=== PATIENT | female | born 1965 | race African-American/Black ===

== ENCOUNTER 2019-05-22 15:17 | Inpatient (IN) | payer OTHER ==
[2019-05-22 17:17] VITALS: BMI 26.7
--- NOTE | 2019-05-22 18:09 | HP ---
"CIWA Score Nausea/Vomitin-No Nausea/No Vomiting Muscle Tremors: 2 Anxiety: 3 Agitation: 2 Paroxysmal Sweats: No Perspiration Orientation: 0-Oriented Tacttile Disturbances: 0-None Auditory Disturbances: 0-None Visual Disturbances: 2-Mild Sensitivity Headache: 0-None Present CIWA-Ar Total Score: 9 - Admission Criteria OASAS Guidelines: Admission for Medically Managed Detox: Requires at least one of the followin. CIWA greater than 12 2. Seizures within the past 24 hours 3. Delirium tremens within the past 24 hours 4. Hallucinations within the past 24 hours 5. Acute intervention needed for co occurring medical disorder 6. Acute intervention needed for co occurring psychiatric disorder 7. Severe withdrawal that cannot be handled at a lower level of care (continued vomiting, continued diarrhea, abnormal vital signs) requiring intravenous medication and/or fluids 8. Admission ROS [facility] Allergies/Adverse Reactions: Allergies Allergy/AdvReac Type Severity Reaction Status Date / Time shellfish derived Allergy Severe Hives Verified 05/22/19 17:01 No Known Drug Allergies Allergy Verified 05/22/19 18:38 History of Present Illness: pt here requesting detox from etoh use , reports 1/2 pint /day and > 6 -pk beer/day , starts drinking in the mornings , has been drinking alcohol heavily since 2015 after the of her mother , latest use this morning , current symptoms as above , reports hand tremors if not drinking , denies blackouts or seizures. First age of use 14 , heavily since 2014 . cocaine : 50-100 $/ day , denies ivdu , first age of use 27 , longest sobriety while in rehab tobacco : 1/4 ppd PMHX : asthma ( hospitalized , intubated in childhood , h nebulizer tx in adulthood ) on inhaler Albuterol , bipolar d/o ( on Seroquel, Depakote ) chronic pain 2/2 LLE femur frx , pelvic frx w/ ORIF 2016 uses cane for ambulation . PSHX : as above , r elbow frx 2003 2/2 slip and fall w/ subsequent ulnar neuropathy . SHX : lives alone . per phar Meds per pharmacy : Meloxicam 7.5 mg , Depakote 500 bid , Seroquel 100 mg Search Terms: viji javier, 1965 Search Date: 05/22/2019 06:42:25 PM This report was requested by: Ashley Rabago | Reference #: [id number] There are no results for the search terms that you entered. Exam Limitations: No Limitations - Ebola screening Have you traveled outside of the country in the last 21 days: No Have you had contact with anyone from an Ebola affected area: No - Review of Systems Constitutional: Loss of Appetite EENT: reports: Other (glasses dentures upper and lower) Respiratory: reports: See HPI Cardiac: reports: No Symptoms Reported GI: reports: Poor Appetite : reports: No Symptoms Reported Musculoskeletal: reports: See HPI, Joint Pain (left leg , pelvis - chronic pain) Integumentary: reports: No Symptoms Reported Neuro: reports: See HPI, Tremors, Unsteady Gait (using cane for stability and balance) Endocrine: reports: No Symptoms Reported Psychiatric: reports: Orientated x3, Anxious Patient History - Patient Medical History Hx Anemia: Yes Hx Asthma: Yes Hx Chronic Obstructive Pulmonary Disease (COPD): No Hx Cancer: No Hx Cardiac Disorders: No Hx Congestive Heart Failure: No Hx Hypertension: No Hx Hypercholesterolemia: No Hx Pacemaker: No HX Cerebrovascular Accident: No Hx Seizures: No Hx Dementia: No Hx Diabetes: No Hx Gastrointestinal Disorders: No Hx Liver Disease: No Hx Genitourinary Disorders: No Hx Sexually Transmitted Disorders: Yes (gonorrhea in 2012) Hx Renal Disease (ESRD): No Hx Thyroid Disease: No Hx Human Immunodeficiency Virus (HIV): No (negative) Hx Hepatitis C: No Hx Depression: Yes Hx Suicide Attempt: No (denies) Hx Bipolar Disorder: Yes (seroquel, depakote, cogentin) Hx Schizophrenia: No - Patient Surgical History Past Surgical History: Yes Hx Neurologic Surgery: No Hx Cataract Extraction: No Hx Cardiac Surgery: No Hx Lung Surgery: No Hx Breast Surgery: No Hx Breast Biopsy: No Hx Abdominal Surgery: No Hx Appendectomy: No Hx Cholecystectomy: No Hx Genitourinary Surgery: No Hx Section: No Hx Orthopedic Surgery: Yes (Fx r elbow after falling, surgical repair) Anesthesia Reaction: No - PPD History Date: 04/16/15 - Reproductive History Last Menstrual Period: 08/26/13 (comes and goes last 2 months ago) - Smoking Cessation Smoking history: Current every day smoker Have you smoked in the past 12 months: Yes Aproximately how many cigarettes per day: 4 Hx Chewing Tobacco Use: No Initiated information on smoking cessation: No - Substances abused Alcohol Substance route: Oral Frequency: Daily Amount used: 1/2 pint vodka, 6 pack beer Age of first use: 14 Date of last use: 05/22/19 Cocaine Substance route: Smoking Frequency: Daily Amount used: $50 Age of first use: 27 Date of last use: 05/21/19 Crack Substance route: Smoking Frequency: Daily Amount used: $100 Age of first use: 27 Date of last use: 05/22/19 Family Disease History - Family Disease History Family Disease History: Diabetes: Mother (d. 2014 ), Heart Disease: Mother, CA: Father (d. throat CA 1997), Respiratory: Son (asthma), Other: Father, Mother Admission Physical Exam S - Vital Signs Vital Signs: Vital Signs - 24 hr 05/22/19 17:07 Temperature 98 F Pulse Rate 69 Respiratory 18 Rate Blood Pressure 120/76 - Physical General Appearance: Yes: Mild Distress, Anxious HEENTM: Yes: EOMI, Hearing grossly Normal, Normocephalic, Normal Voice, Other ( upper and lower dentures) Respiratory: Yes: Lungs Clear, Normal Breath Sounds, No Respiratory Distress, No Accessory Muscle Use Neck: Yes: No masses,lesions,Nodules, Trachea in good position Cardiology: Yes: Regular Rhythm, Regular Rate, S1, S2 Abdominal: Yes: Non Tender, Soft Back: Yes: Normal Inspection Musculoskeletal: Yes: Other (unsteady gait , uses cane for stability and balance .) Extremities: Yes: Other (LLE surgical scars lateral thigh and below knee , mild edema LLE , per pt chronic R UE IVth and Vth fingers hyperextension PIP deformity old surgical scar right elbow) Neurological: Yes: Alert, Motor Strength 5/5, Depressed Affect Integumentary: Yes: Warm - Diagnostic (1) Alcohol dependence Current Visit: Yes Status: Chronic Qualifiers: Substance use status: in withdrawal (2) Cocaine dependence Current Visit: Yes Status: Chronic Qualifiers: Substance use status: uncomplicated Qualified Code(s): F14.20 - Cocaine dependence, uncomplicated (3) Nicotine dependence Current Visit: Yes Status: Chronic Qualifiers: Nicotine product type: cigarettes Breathalyzer - Breathalyzer Breathalyzer: 0 Urine Drug Screen - Test Device Lot number: [id number] Expiration date: 02/23/21 - Control Is test valid?: Yes - Results Drug screen NEGATIVE: No Urine drug screen results: [facility]-Cocaine Inpatient Rehab Admission - Rehab Decision to Admit Inpatient rehab admission?: No"
[2019-05-22] MEDS ORDERED: P-EPHED 60MG/TRIPROLIDI 2.5MG TABLET PO PRN (18:32)
[2019-05-22] MEDS ORDERED: MAGNESIUM CITRATE 300 ML BOTTLE PO PRN (18:32)
[2019-05-22] MEDS ORDERED: ACETAMINOPHEN 325 MG TABLET (FP) PO PRN ×2 (18:32)
[2019-05-22] MEDS ORDERED: MENTHOL/PHENOL 1 EACH UD MM PRN (18:32)
[2019-05-22] MEDS ORDERED: IBUPROFEN 400 MG TABLET (FP) PO PRN (18:32)
[2019-05-22] MEDS ORDERED: MELATONIN 5 MG TABLETS PO PRN (18:32)
[2019-05-22] MEDS ORDERED: MAGNESIUM HYDROX 2400MG/30ML ORAL SUSPENSION 30 ML CUP PO PRN (18:32)
[2019-05-22] MEDS ORDERED: guaiFENesin 200 MG/10 ML 10 ML UNIT-DOSE CUPS PO PRN (18:32)
[2019-05-22] MEDS ORDERED: NICOTINE POLACRILEX 2 MG GUM BUC PRN (18:32)
[2019-05-22] MEDS ORDERED: BISMUTH SUBSALICYLATE 524 MG/30 ML UD PO PRN (18:32)
[2019-05-22] MEDS ORDERED: MAG HYDROX/AL HYDROX/SIMETH 30 ML UNIT-DOSE CUP PO PRN (18:32)
[2019-05-22] MEDS ORDERED: hydrOXYzine PAMOATE 25 MG CAPSULE (FP) PO PRN (18:32)
[2019-05-22] MEDS ORDERED: METHOCARBAMOL 500 MG TABLET PO PRN (18:32)
[2019-05-22] MEDS ORDERED: diazePAM 5 MG TABLET PO PRN (18:36)
[2019-05-22] MEDS ORDERED: QUEtiapine FUMARATE 100 MG TABLET (FP) PO ONE (21:00)
[2019-05-22] MEDS: diazePAM 5 MG TABLET PO SCH (22:35)
[2019-05-22] MEDS: THIAMINE HCL 100 MG TABLET (FP) PO SCH (22:37)
[2019-05-23] MEDS: diazePAM 5 MG TABLET PO SCH ×3 (06:40→22:09)
[2019-05-23 10:13] LABS: HEMATOCRIT 38.5 % (32.4-45.2); HEMOGLOBIN 12.5 GM/dL (10.7-15.3); MCH 30.5 pg (25.7-33.7); MCHC 32.6 g/dl (32.0-36.0); MEAN CELL VOLUME 93.7 fl (80-96); MEAN PLT VOLUME 8.9 fl (7.5-11.1); PLATELET COUNT 261 K/MM3 (134-434); RBC 4.11 M/mm3 (3.60-5.2); RDW 13.8 % (11.6-15.6); WHITE BLOOD COUNT 7.3 K/mm3 (4.0-10.0)
[2019-05-23 10:25] LABS: ALBUMIN 2.9 g/dl (3.4-5.0); BILIRUBIN,TOTAL 0.3 mg/dL (0.2-1); BLOOD UREA NITROGEN 14.9 mg/dL (7-18); CALCIUM 9.1 mg/dL (8.5-10.1); CREATININE 0.7 mg/dL (0.55-1.3); TOT PROT 5.5 g/dl (6.4-8.2)
[2019-05-23] MEDS: PRENATAL VITAMINS W/ FOLIC ACID TABLET (FP) PO SCH (10:35)
--- NOTE | 2019-05-23 11:05 | PN ---
S CIWA - CIWA Score Nausea/Vomitin-No Nausea/No Vomiting Muscle Tremors: 2 Anxiety: 1-Mildly Anxious Agitation: 2 Paroxysmal Sweats: 1-Minimal Palms Moist Orientation: 0-Oriented Tacttile Disturbances: 0-None Auditory Disturbances: 0-None Visual Disturbances: 0-None Headache: 0-None Present CIWA-Ar Total Score: 6 BHS Progress Note (SOAP) Subjective: sweats body aches tired interrupted sleep Objective: 05/23/19 11:04 Vital Signs Temperature 97.9 F 05/23/19 09:34 Pulse Rate 82 05/23/19 09:34 Respiratory Rate 20 05/23/19 09:34 Blood Pressure 113/59 L 05/23/19 09:34 O2 Sat by Pulse Oximetry (%) Laboratory Tests 05/23/19 05/23/19 07:00 07:00 WBC 7.3 RBC 4.11 Hgb 12.5 Hct 38.5 MCV 93.7 MCH 30.5 MCHC 32.6 RDW 13.8 Plt Count 261 D MPV 8.9 Sodium 146 H Potassium 4.0 Chloride 113 H Carbon Dioxide 26 Anion Gap 6 L BUN 14.9 Creatinine 0.7 Est GFR (CKD-EPI)AfAm 113.84 Est GFR (CKD-EPI)NonAf 98.23 Random Glucose 94 Calcium 9.1 Total Bilirubin 0.3 AST 14 L ALT 17 Alkaline Phosphatase 71 Total Protein 5.5 L Albumin 2.9 L labs noted aaox3 lying in bed no acute distress Assessment: 05/23/19 11:05 withdrawal sx Plan: continue detox increase fluids
[2019-05-23] MEDS: NAPROXEN 500 MG TABLET (FP) PO SCH ×2 (13:06→22:09)
--- NOTE | 2019-05-23 18:31 | CONSULT ---
[facility] Psychiatric Consult - Data Date of interview: 05/23/19 Admission source: [facility] Identifying data: Patient is a 53 year old single, mother of one, unemployed, domiciled, and is supported by [facility]. This is one of multiple admissions for patient. Patient admitted to for alcohol and cocaine dependence. Substance Abuse History: - Smoking Cessation. Smoking history: Current every day smoker. Have you smoked in the past 12 months: Yes. Aproximately how many cigarettes per day: 4. Hx Chewing Tobacco Use: No. Initiated information on smoking cessation: No. - Substances abused. Alcohol. Substance route: Oral. Frequency: Daily. Amount used: 1/2 pint vodka, 6 pack beer. Age of first use: 14. Date of last use: 05/22/19. Cocaine. Substance route: Smoking. Frequency: Daily. Amount used: $50. Age of first use: 27. Date of last use: 05/21/19. Crack. Substance route: Smoking. Frequency: Daily. Amount used: $100. Age of first use: 27. Date of last use: 05/22/19 Medical History: Distant history of orthopedic surgery (right elbow), asthma Psychiatric History: Patient's first psychiatric contact was at 12 years of age at [facility] outpatient clinic due to rebellious and oppositional behavior. She received psychotherapy but denies receiving psychotropic medications. Ms. Mcgrath reports an extensive psychiatric hospital. She was most recently hospitalized in 2017 at [facility] for mood dyregulation. Patient is also known to multiple hospitals in [facility] and [facility]. Diagnosis of Bipolar disorder. Ms. Mcgrath currently receives outpatient psychiatric care at the [facility] in [place], [place]. She is prescribed Seroquel 100mg HS + Depakote 500mg BID. Patient denies history of suicide attempt. At present she reports stable mood. Physical/Sexual Abuse/Trauma History: denies. Mental Status Exam - Mental Status Exam Alert and Oriented to: Time, Place, Person Cognitive Function: Good Patient Appearance: Well Groomed Mood: Euthymic Affect: Mood Congruent Patient Behavior: Cooperative Speech Pattern: Appropriate Voice Loudness: Normal Thought Process: Goal Oriented Thought Disorder: Not Present Hallucinations: Denies Suicidal Ideation: Denies Homicidal Ideation: Denies Insight/Judgement: Poor Sleep: Fair Appetite: Fair Psychiatric Findings - Problem List ([place] 1, 2,3) (1) Alcohol dependence Current Visit: Yes Status: Chronic Qualifiers: Substance use status: in withdrawal (2) Cocaine dependence Current Visit: Yes Status: Chronic Qualifiers: Substance use status: uncomplicated Qualified Code(s): F14.20 - Cocaine dependence, uncomplicated (3) Nicotine dependence Current Visit: Yes Status: Chronic Qualifiers: Nicotine product type: cigarettes (4) Bipolar disorder Current Visit: Yes Status: Chronic - Initial Treatment Plan Initial Treatment Plan: Psychoeducation provided. Detoxification in progress. Will order Seroquel 100mg HS + Depakote 500mg BID. Will order Valproic acid level for 05/24/19. Benefits and side effects discussed. Verbal consent given.
[2019-05-23] MEDS: THIAMINE HCL 100 MG TABLET (FP) PO SCH (22:09)
[2019-05-23] MEDS: QUEtiapine FUMARATE 100 MG TABLET (FP) PO SCH (22:09)
[2019-05-23] MEDS: DIVALPROEX SODIUM 500 MG TABLET E.C. PO SCH (22:11)
[2019-05-24] MEDS: diazePAM 5 MG TABLET PO SCH ×2 (05:48→17:15)
[2019-05-24] MEDS: DIVALPROEX SODIUM 500 MG TABLET E.C. PO SCH ×2 (10:17→22:26)
[2019-05-24] MEDS: NAPROXEN 500 MG TABLET (FP) PO SCH ×2 (10:18→22:26)
[2019-05-24] MEDS: PRENATAL VITAMINS W/ FOLIC ACID TABLET (FP) PO SCH (10:18)
--- NOTE | 2019-05-24 13:15 | PN ---
[facility] CIWA - CIWA Score Nausea/Vomitin-No Nausea/No Vomiting Muscle Tremors: 3 Anxiety: 2 Agitation: 2 Paroxysmal Sweats: 2 Orientation: 0-Oriented Tacttile Disturbances: 0-None Auditory Disturbances: 0-None Visual Disturbances: 0-None Headache: 0-None Present CIWA-Ar Total Score: 9 S Progress Note (SOAP) Subjective: anxiety feeling much better Objective: 05/24/19 13:15 Vital Signs Temperature 97.9 F 05/24/19 09:48 Pulse Rate 80 05/24/19 09:48 Respiratory Rate 18 05/24/19 09:48 Blood Pressure 106/56 L 05/24/19 09:48 O2 Sat by Pulse Oximetry (%) Laboratory Tests 05/22/19 05/23/19 05/23/19 17:35 07:00 07:00 WBC 7.3 RBC 4.11 Hgb 12.5 Hct 38.5 MCV 93.7 MCH 30.5 MCHC 32.6 RDW 13.8 Plt Count 261 D MPV 8.9 Sodium 146 H Potassium 4.0 Chloride 113 H Carbon Dioxide 26 Anion Gap 6 L BUN 14.9 Creatinine 0.7 Est GFR (CKD-EPI)AfAm 113.84 Est GFR (CKD-EPI)NonAf 98.23 Random Glucose 94 Calcium 9.1 Total Bilirubin 0.3 AST 14 L ALT 17 Alkaline Phosphatase 71 Total Protein 5.5 L Albumin 2.9 L POC Urine HCG, Qual Negative Valproic Acid RPR Titer HIV 1&2 Ag/Ab, 4th Gen HIV 1&2 Antibody Screen HIV P24 Antigen 05/23/19 05/23/19 05/23/19 07:00 07:00 08:30 WBC RBC Hgb Hct MCV MCH MCHC RDW Plt Count MPV Sodium Potassium Chloride Carbon Dioxide Anion Gap BUN Creatinine Est GFR (CKD-EPI)AfAm Est GFR (CKD-EPI)NonAf Random Glucose Calcium Total Bilirubin AST ALT Alkaline Phosphatase Total Protein Albumin POC Urine HCG, Qual Valproic Acid RPR Titer Nonreactive HIV 1&2 Ag/Ab, 4th Gen Non reactive HIV 1&2 Antibody Screen Cancelled HIV P24 Antigen Cancelled 05/24/19 07:30 WBC RBC Hgb Hct MCV MCH MCHC RDW Plt Count MPV Sodium Potassium Chloride Carbon Dioxide Anion Gap BUN Creatinine Est GFR (CKD-EPI)AfAm Est GFR (CKD-EPI)NonAf Random Glucose Calcium Total Bilirubin AST ALT Alkaline Phosphatase Total Protein Albumin POC Urine HCG, Qual Valproic Acid 32.6 L RPR Titer HIV 1&2 Ag/Ab, 4th Gen HIV 1&2 Antibody Screen HIV P24 Antigen aaox3 ambulating no acute distress Assessment: 05/24/19 13:15 mild withdrawal sx Plan: continue detox d/c in am
[2019-05-24] MEDS: THIAMINE HCL 100 MG TABLET (FP) PO SCH (22:26)
[2019-05-24] MEDS: QUEtiapine FUMARATE 100 MG TABLET (FP) PO SCH (22:26)
[2019-05-25] MEDS ORDERED: diazePAM 5 MG TABLET PO ONE (06:00)
[2019-05-25 09:44] VITALS: BP 125/75; PULSE 78; TEMP 97.1
--- NOTE | 2019-05-25 09:49 | DS ---
[facility] Detox Discharge Summary Admission Date: 05/22/19 Discharge Date: 05/25/19 - History Present History: Alcohol Dependence, Cocaine Dependence - Physical Exam Results Vital Signs: Vital Signs Temperature 97.1 F L 05/25/19 09:43 Pulse Rate 78 05/25/19 09:43 Respiratory Rate 18 05/25/19 09:43 Blood Pressure 125/75 05/25/19 09:43 O2 Sat by Pulse Oximetry (%) Pertinent Admission Physical Exam Findings: pt arrived in withdrawals Laboratory Tests 05/22/19 05/23/19 05/23/19 17:35 07:00 07:00 WBC 7.3 RBC 4.11 Hgb 12.5 Hct 38.5 MCV 93.7 MCH 30.5 MCHC 32.6 RDW 13.8 Plt Count 261 D MPV 8.9 Sodium 146 H Potassium 4.0 Chloride 113 H Carbon Dioxide 26 Anion Gap 6 L BUN 14.9 Creatinine 0.7 Est GFR (CKD-EPI)AfAm 113.84 Est GFR (CKD-EPI)NonAf 98.23 Random Glucose 94 Calcium 9.1 Total Bilirubin 0.3 AST 14 L ALT 17 Alkaline Phosphatase 71 Total Protein 5.5 L Albumin 2.9 L POC Urine HCG, Qual Negative Valproic Acid RPR Titer HIV 1&2 Ag/Ab, 4th Gen HIV 1&2 Antibody Screen HIV P24 Antigen 05/23/19 05/23/19 05/23/19 07:00 07:00 08:30 WBC RBC Hgb Hct MCV MCH MCHC RDW Plt Count MPV Sodium Potassium Chloride Carbon Dioxide Anion Gap BUN Creatinine Est GFR (CKD-EPI)AfAm Est GFR (CKD-EPI)NonAf Random Glucose Calcium Total Bilirubin AST ALT Alkaline Phosphatase Total Protein Albumin POC Urine HCG, Qual Valproic Acid RPR Titer Nonreactive HIV 1&2 Ag/Ab, 4th Gen Non reactive HIV 1&2 Antibody Screen Cancelled HIV P24 Antigen Cancelled 05/24/19 07:30 WBC RBC Hgb Hct MCV MCH MCHC RDW Plt Count MPV Sodium Potassium Chloride Carbon Dioxide Anion Gap BUN Creatinine Est GFR (CKD-EPI)AfAm Est GFR (CKD-EPI)NonAf Random Glucose Calcium Total Bilirubin AST ALT Alkaline Phosphatase Total Protein Albumin POC Urine HCG, Qual Valproic Acid 32.6 L RPR Titer HIV 1&2 Ag/Ab, 4th Gen HIV 1&2 Antibody Screen HIV P24 Antigen today pt is aaox3 ambulating no acute distress no s/s of withdrawals - Treatment Hospital Course: Detox Protocol Followed, Detoxed Safely, Responded well, Discharged Condition Good, Rehab Referral Accepted Patient has Accepted a Rehab Referral to: pt referred to rehab at [facility] - Medication Discharge Medications: Ambulatory Orders Divalproex [Depakote -] 500 mg PO BID #60 tablet.ec 04/14/15 Quetiapine Fumarate [Seroquel -] 50 mg PO HS #30 tablet 04/14/15 Albuterol Sulfate Inhaler - [Ventolin HFA Inhaler -] 2 inh IH Q4H PRN #1 canister 04/18/15 - Diagnosis (1) Alcohol dependence Current Visit: Yes Status: Chronic Qualifiers: Substance use status: uncomplicated Qualified Code(s): F10.20 - Alcohol dependence, uncomplicated (2) Bipolar disorder Current Visit: Yes Status: Chronic (3) Cocaine dependence Current Visit: Yes Status: Chronic Qualifiers: Substance use status: uncomplicated Qualified Code(s): F14.20 - Cocaine dependence, uncomplicated (4) Nicotine dependence Current Visit: Yes Status: Chronic Qualifiers: Nicotine product type: cigarettes Substance use status: uncomplicated Qualified Code(s): F17.210 - Nicotine dependence, cigarettes, uncomplicated (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
[2019-05-25] MEDS: PRENATAL VITAMINS W/ FOLIC ACID TABLET (FP) PO SCH (10:39)
[2019-05-25] MEDS: DIVALPROEX SODIUM 500 MG TABLET E.C. PO SCH (10:39)
[2019-05-25] MEDS: NAPROXEN 500 MG TABLET (FP) PO SCH (10:39)
== END 2019-05-25 12:22 | disposition other institution (70) | DRG 774 ==
LOC: YASAS 15:17 → Y6N 18:56
PROVIDERS: ADMIT Surgery; ATTEND Surgery
PROC: HZ2ZZZZ Detoxification Services for Substance Abuse Treatment (ICD-10-PCS; principal; 2019-05-22)
DX: F10.230 Alcohol dependence with withdrawal, uncomplicated (principal); F14.20 Cocaine dependence, uncomplicated; F17.210 Nicotine dependence, cigarettes, uncomplicated; F31.9 Bipolar disorder, unspecified; J45.909 Unspecified asthma, uncomplicated; M21.822 Other specified acquired deformities of left upper arm; Z86.2 Personal history of diseases of the blood and blood-forming organs and certain disorders involving the immune mechanism; Z86.19 Personal history of other infectious and parasitic diseases
CPT/HCPCS: 36415; 80053; 80164; 81025; 85027; 86480; 86593; 87389

== ENCOUNTER 2019-05-25 12:38 | Inpatient (IN) | payer OTHER ==
--- NOTE | 2019-05-25 13:22 | HP ---
[facility] Rehab Assess/Revision - Admission History Ad[facility]hab [facility] - Findings Detox History & Physical reviewed: Yes Concur with findings: Yes Inpatient Rehab Admission - Rehab Decision to Admit Inpatient rehab admission?: Yes - Initial Determination Are CD services needed?: Yes Free of communicable disease: Yes Not in need of hospitalization: Yes - Rehab Admission Criteria Previous failed treatment: Yes Poor recovery environment: Yes Comorbidities: Yes Lacks judgement: Yes Patient is meeting Inpatient Rehab admission criteria:: Yes
[2019-05-25] MEDS ORDERED: P-EPHED 60MG/TRIPROLIDI 2.5MG TABLET PO PRN (13:27)
[2019-05-25] MEDS ORDERED: ALBUTEROL SO4 8 GM HFA INHALER IH PRN (13:27)
[2019-05-25] MEDS ORDERED: MAGNESIUM CITRATE 300 ML BOTTLE PO PRN (13:27)
[2019-05-25] MEDS ORDERED: LOPERAMIDE HCL 2 MG CAPSULE PO PRN (13:27)
[2019-05-25] MEDS ORDERED: MAGNESIUM HYDROX 2400MG/30ML ORAL SUSPENSION 30 ML CUP PO PRN (13:27)
[2019-05-25] MEDS ORDERED: guaiFENesin 200 MG/10 ML 10 ML UNIT-DOSE CUPS PO PRN (13:27)
[2019-05-25] MEDS ORDERED: MENTHOL/PHENOL 1 EACH UD MM PRN (13:27)
[2019-05-25] MEDS: DIVALPROEX SODIUM 500 MG TABLET E.C. PO SCH (21:37)
[2019-05-25] MEDS: THIAMINE HCL 100 MG TABLET (FP) PO SCH (21:37)
[2019-05-25] MEDS: QUEtiapine FUMARATE 100 MG TABLET (FP) PO SCH (21:37)
[2019-05-25] MEDS ORDERED: MELATONIN 5 MG TABLETS PO PRN (22:00)
[2019-05-26] MEDS: ACETAMINOPHEN 325 MG TABLET (FP) PO PRN ×2 (02:31→18:23)
[2019-05-26] MEDS: PRENATAL VITAMINS W/ FOLIC ACID TABLET (FP) PO SCH (10:20)
[2019-05-26] MEDS: DIVALPROEX SODIUM 500 MG TABLET E.C. PO SCH ×2 (10:20→21:11)
[2019-05-26] MEDS: IBUPROFEN 400 MG TABLET (FP) PO PRN ×2 (10:21→21:11)
[2019-05-26] MEDS: MAG HYDROX/AL HYDROX/SIMETH 30 ML UNIT-DOSE CUP PO PRN (18:23)
[2019-05-26] MEDS: QUEtiapine FUMARATE 100 MG TABLET (FP) PO SCH (21:11)
[2019-05-26] MEDS: THIAMINE HCL 100 MG TABLET (FP) PO SCH (21:11)
[2019-05-27] MEDS: ACETAMINOPHEN 325 MG TABLET (FP) PO PRN ×2 (06:35→21:10)
[2019-05-27] MEDS: DIVALPROEX SODIUM 500 MG TABLET E.C. PO SCH ×2 (09:52→21:09)
[2019-05-27] MEDS: PRENATAL VITAMINS W/ FOLIC ACID TABLET (FP) PO SCH (09:52)
[2019-05-27] MEDS: IBUPROFEN 400 MG TABLET (FP) PO PRN ×2 (09:53→18:51)
[2019-05-27] MEDS: MAG HYDROX/AL HYDROX/SIMETH 30 ML UNIT-DOSE CUP PO PRN (09:53)
[2019-05-27] MEDS: QUEtiapine FUMARATE 100 MG TABLET (FP) PO SCH (21:09)
[2019-05-27] MEDS: hydrOXYzine PAMOATE 50 MG CAPSULE (FP) PO PRN (21:09)
[2019-05-27] MEDS: THIAMINE HCL 100 MG TABLET (FP) PO SCH (21:09)
[2019-05-28] MEDS: ACETAMINOPHEN 325 MG TABLET (FP) PO PRN ×2 (02:06→15:23)
[2019-05-28] MEDS: IBUPROFEN 400 MG TABLET (FP) PO PRN (09:55)
[2019-05-28] MEDS: PRENATAL VITAMINS W/ FOLIC ACID TABLET (FP) PO SCH (09:55)
[2019-05-28] MEDS: DIVALPROEX SODIUM 500 MG TABLET E.C. PO SCH ×2 (09:55→21:48)
[2019-05-28] MEDS: THIAMINE HCL 100 MG TABLET (FP) PO SCH (21:48)
[2019-05-28] MEDS: NAPROXEN 500 MG TABLET (FP) PO SCH (21:48)
[2019-05-28] MEDS: QUEtiapine FUMARATE 100 MG TABLET (FP) PO SCH (21:48)
[2019-05-28] MEDS: hydrOXYzine PAMOATE 50 MG CAPSULE (FP) PO PRN (21:48)
[2019-05-29] MEDS: ACETAMINOPHEN 325 MG TABLET (FP) PO PRN ×2 (04:47→19:27)
[2019-05-29] MEDS: NAPROXEN 500 MG TABLET (FP) PO SCH ×2 (09:50→21:28)
[2019-05-29] MEDS: PRENATAL VITAMINS W/ FOLIC ACID TABLET (FP) PO SCH (09:50)
[2019-05-29] MEDS: DIVALPROEX SODIUM 500 MG TABLET E.C. PO SCH ×2 (09:50→21:27)
[2019-05-29] MEDS: SIMETHICONE 80 MG TAB.CHEW (FP) PO PRN ×2 (13:35→21:28)
[2019-05-29] MEDS: THIAMINE HCL 100 MG TABLET (FP) PO SCH (21:27)
[2019-05-29] MEDS: QUEtiapine FUMARATE 100 MG TABLET (FP) PO SCH (21:27)
[2019-05-30] MEDS: NAPROXEN 500 MG TABLET (FP) PO SCH ×2 (09:44→21:30)
[2019-05-30] MEDS: DIVALPROEX SODIUM 500 MG TABLET E.C. PO SCH ×2 (09:44→21:30)
[2019-05-30] MEDS: PRENATAL VITAMINS W/ FOLIC ACID TABLET (FP) PO SCH (09:44)
[2019-05-30] MEDS: QUEtiapine FUMARATE 100 MG TABLET (FP) PO SCH (21:30)
[2019-05-30] MEDS: THIAMINE HCL 100 MG TABLET (FP) PO SCH (21:30)
[2019-05-31] MEDS: DIVALPROEX SODIUM 500 MG TABLET E.C. PO SCH ×2 (09:57→21:22)
[2019-05-31] MEDS: PRENATAL VITAMINS W/ FOLIC ACID TABLET (FP) PO SCH (09:57)
[2019-05-31] MEDS: NAPROXEN 500 MG TABLET (FP) PO SCH ×2 (09:57→21:22)
[2019-05-31] MEDS: THIAMINE HCL 100 MG TABLET (FP) PO SCH (21:22)
[2019-05-31] MEDS: QUEtiapine FUMARATE 100 MG TABLET (FP) PO SCH (21:22)
[2019-05-31] MEDS: ACETAMINOPHEN 325 MG TABLET (FP) PO PRN (23:39)
[2019-06-01] MEDS: NAPROXEN 500 MG TABLET (FP) PO SCH ×2 (10:05→21:27)
[2019-06-01] MEDS: PRENATAL VITAMINS W/ FOLIC ACID TABLET (FP) PO SCH (10:05)
[2019-06-01] MEDS: DIVALPROEX SODIUM 500 MG TABLET E.C. PO SCH ×2 (10:05→21:27)
[2019-06-01] MEDS: ACETAMINOPHEN 325 MG TABLET (FP) PO PRN ×2 (12:38→19:20)
--- NOTE | 2019-06-01 15:07 | PN ---
S Progress Note Note: Patient seen for c/o right eye redness, discharge and itching. Vital Signs Temperature 97.1 F L 06/01/19 07:06 Pulse Rate 73 06/01/19 07:06 Respiratory Rate 18 06/01/19 07:06 Blood Pressure 103/70 06/01/19 07:06 O2 Sat by Pulse Oximetry (%) PE right eye with redness to conjunctivae, no discharge present but patient state she just cleaned eye and noticed white, thick discharge. +perrla, eoms intact bl A/P: conjunctivitis will start tobramcyin eye gtts hand hygiene monitor clinically
[2019-06-01] MEDS: THIAMINE HCL 100 MG TABLET (FP) PO SCH (21:27)
[2019-06-01] MEDS: TOBRAMYCIN 0.3% OPHTH SOLN 5 ML BOTTLE OD SCH (21:27)
[2019-06-01] MEDS: QUEtiapine FUMARATE 100 MG TABLET (FP) PO SCH (21:27)
[2019-06-02] MEDS: TOBRAMYCIN 0.3% OPHTH SOLN 5 ML BOTTLE OD SCH ×3 (06:33→21:22)
[2019-06-02] MEDS: NAPROXEN 500 MG TABLET (FP) PO SCH ×2 (10:32→21:22)
[2019-06-02] MEDS: PRENATAL VITAMINS W/ FOLIC ACID TABLET (FP) PO SCH (10:32)
[2019-06-02] MEDS: DIVALPROEX SODIUM 500 MG TABLET E.C. PO SCH ×2 (10:32→21:21)
[2019-06-02] MEDS ORDERED: PT OWN MED DRAWER 7, Y5N ONE (19:10)
[2019-06-02] MEDS: THIAMINE HCL 100 MG TABLET (FP) PO SCH (21:21)
[2019-06-02] MEDS: QUEtiapine FUMARATE 100 MG TABLET (FP) PO SCH (21:21)
[2019-06-03] MEDS: TOBRAMYCIN 0.3% OPHTH SOLN 5 ML BOTTLE OD SCH ×3 (06:44→21:08)
[2019-06-03] MEDS: PRENATAL VITAMINS W/ FOLIC ACID TABLET (FP) PO SCH (10:09)
[2019-06-03] MEDS: DIVALPROEX SODIUM 500 MG TABLET E.C. PO SCH ×2 (10:09→21:07)
[2019-06-03] MEDS: NAPROXEN 500 MG TABLET (FP) PO SCH ×2 (10:09→21:07)
[2019-06-03] MEDS: QUEtiapine FUMARATE 100 MG TABLET (FP) PO SCH (21:07)
[2019-06-03] MEDS: THIAMINE HCL 100 MG TABLET (FP) PO SCH (21:07)
[2019-06-04] MEDS: TOBRAMYCIN 0.3% OPHTH SOLN 5 ML BOTTLE OD SCH ×3 (06:28→21:43)
[2019-06-04] MEDS: NAPROXEN 500 MG TABLET (FP) PO SCH ×2 (10:00→21:43)
[2019-06-04] MEDS: DIVALPROEX SODIUM 500 MG TABLET E.C. PO SCH ×2 (10:00→21:43)
[2019-06-04] MEDS: PRENATAL VITAMINS W/ FOLIC ACID TABLET (FP) PO SCH (10:00)
[2019-06-04] MEDS ORDERED: COLLOIDAL OATMEAL 1 BAR EACH TP PRN (13:38)
[2019-06-04] MEDS ORDERED: PT OWN MED DRAWER 7, Y5N ONE (21:42)
[2019-06-04] MEDS: THIAMINE HCL 100 MG TABLET (FP) PO SCH (21:43)
[2019-06-04] MEDS: QUEtiapine FUMARATE 100 MG TABLET (FP) PO SCH (21:43)
[2019-06-04] MEDS: SIMETHICONE 80 MG TAB.CHEW (FP) PO PRN (21:43)
[2019-06-05] MEDS ORDERED: PT OWN MED DRAWER 7, Y5N ONE ×2 (06:02→21:36)
[2019-06-05 07:14] VITALS: TEMP 97.1
[2019-06-05] MEDS: TOBRAMYCIN 0.3% OPHTH SOLN 5 ML BOTTLE OD SCH ×3 (07:36→22:23)
[2019-06-05] MEDS: PRENATAL VITAMINS W/ FOLIC ACID TABLET (FP) PO SCH (09:50)
[2019-06-05] MEDS: DIVALPROEX SODIUM 500 MG TABLET E.C. PO SCH ×2 (09:50→21:11)
[2019-06-05] MEDS: NAPROXEN 500 MG TABLET (FP) PO SCH ×2 (09:50→21:11)
--- NOTE | 2019-06-05 11:17 | PN ---
[facility] Progress Note Note: Patient is scheduled for discharge tomorrow. Scripts for 30 days supply of medications(Seroquel 100 mg/hs, Depakote 500 mg/bid) will be electronically transmitted to [facility] at [place] [id number]
--- NOTE | 2019-06-05 12:59 | DS ---
[facility] Rehab Discharge Summary - [facility] Rehab Discharge Summary Admission Date: 05/25/19 Discharge Date: 06/06/19 - History Present History: Alcohol dependence, Cocaine dependence Additional Comments: Pt is a 53 y/o female admitted to rehab with a hx of alcohol and cocaine use disorder . Pt completed rehab and scheduled to discharge ton 06/06/19. Pt met with the counselor and accepted referral to CD aftercare. Pt reports she has primary care/Mental Health and CD aftercare at [facility]. Pertinent Past History: asthma Left elbow deformity S/P Left leg sx- r/t femur and pelvic fractures chronic back pain Psychiatric disorder - Discharge Physical Exam Vital Signs: Vital Signs Temperature 97.1 F L 06/05/19 07:13 Pulse Rate 68 06/05/19 07:13 Respiratory Rate 18 06/05/19 07:13 Blood Pressure 131/69 06/05/19 07:13 O2 Sat by Pulse Oximetry (%) Alert o x 3 NAD Heent:Normocephalic,eomi,julieth Cardiac:s1 s2,rrr Lungs:cta,sunshine. Extremities:Right LE wnl; Left LE with chronic edema s/p sx with rods/pins per patient verbal hx. Ambulating with cane. Pertinent Admission Physical Exam Findings: ambulate with cane S/p Left leg sx with chronic pain - Treatment Discharge Condition: Discharge condition good Hospital Course: Rehabilitated safely and Responded well Pt accepted CD aftercare - Medication Discharge Medications: Ambulatory Orders Divalproex [Depakote -] 500 mg PO BID #60 tablet.ec 04/14/15 Albuterol Sulfate Inhaler - [Ventolin HFA Inhaler -] 2 inh IH Q4H PRN #1 canister 04/18/15 Divalproex [Depakote -] 500 mg PO BID #60 tablet.ec 06/05/19 Quetiapine Fumarate [Seroquel] 100 mg PO HS #30 tablet 06/05/19 - Medication-Assisted Treatment (MAT) Medication-Assisted Treatment (MAT): No - Discharge Instructions Diet, activity, other medical instructions: Diet:regular diet Activity: OOB,Ad Bhavana with cane Other medical instructions:Follow up with [facility] for primary care/ Mental health and CD aftercare as scheduled @ [address] [place] [address]. 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 (2) Alcohol dependence Current Visit: Yes Status: Chronic Qualifiers: Substance use status: uncomplicated Qualified Code(s): F10.20 - Alcohol dependence, uncomplicated (3) Asthma Current Visit: Yes Status: Chronic Qualifiers: Asthma severity: unspecified severity Asthma persistence: unspecified Asthma complication type: unspecified Qualified Code(s): J45.909 - Unspecified asthma, uncomplicated (4) Bipolar disorder Current Visit: Yes Status: Chronic (5) Cocaine dependence Current Visit: Yes Status: Chronic Qualifiers: Substance use status: uncomplicated Qualified Code(s): F14.20 - Cocaine dependence, uncomplicated (6) Nicotine dependence Current Visit: Yes Status: Chronic Qualifiers: Nicotine product type: cigarettes Substance use status: uncomplicated Qualified Code(s): F17.210 - Nicotine dependence, cigarettes, uncomplicated - Follow-up Referral Minutes to complete discharge: 30 - AMA Did Patient Leave Against Medical Advice: No
[2019-06-05] MEDS: THIAMINE HCL 100 MG TABLET (FP) PO SCH (21:11)
[2019-06-05] MEDS: QUEtiapine FUMARATE 100 MG TABLET (FP) PO SCH (21:11)
[2019-06-06] MEDS: TOBRAMYCIN 0.3% OPHTH SOLN 5 ML BOTTLE OD SCH (06:54)
[2019-06-06 07:11] VITALS: BP 117/77; PULSE 62
[2019-06-06] MEDS: PRENATAL VITAMINS W/ FOLIC ACID TABLET (FP) PO SCH (09:47)
[2019-06-06] MEDS: NAPROXEN 500 MG TABLET (FP) PO SCH (09:47)
[2019-06-06] MEDS: DIVALPROEX SODIUM 500 MG TABLET E.C. PO SCH (09:47)
== END 2019-06-06 09:55 | disposition home or self-care (01) | DRG 772 ==
LOC: YASAS 12:38 → Y3E 12:39
PROVIDERS: ADMIT Neuromusculoskeletal Medicine & OMM; ATTEND Neuromusculoskeletal Medicine & OMM
PROC: HZ42ZZZ Group Counseling for Substance Abuse Treatment, Cognitive-Behavioral (ICD-10-PCS; principal; 2019-05-25)
DX: F10.20 Alcohol dependence, uncomplicated (principal); F14.20 Cocaine dependence, uncomplicated; F17.210 Nicotine dependence, cigarettes, uncomplicated; F31.9 Bipolar disorder, unspecified; J45.909 Unspecified asthma, uncomplicated; M21.922 Unspecified acquired deformity of left upper arm; H10.31 Unspecified acute conjunctivitis, right eye